=== PATIENT | male | born 1970 | race Caucasian/White ===

== ENCOUNTER 2024-12-16 12:56 | Emergency (ER) | payer BC, SELFPAY ==
--- NOTE | ~2024-12-16 | XR_ITS ---
EXAMINATION: XR HUMERUS, RIGHT CLINICAL INFORMATION: pain s/p fall COMPARISON: None available. TECHNIQUE: AP and lateral views of the right humerus. FINDINGS: Nondisplaced comminuted fracture right humeral head. No additional fractures seen. No malalignment. Small jacob spur distal humeral diaphysis. No soft tissue abnormalities. XR/XR humerus RT IMPRESSION: Comminuted nondisplaced humeral head fracture. Fracture lines traverse the greater tuberosity and surgical neck. Electronically signed by: Lon Ballard MD 12/16/2024 02:18 PM [facility]
--- NOTE | ~2024-12-16 | XR_ITS ---
EXAMINATION: XR SHOULDER, RIGHT CLINICAL INFORMATION: pain s/p fall COMPARISON: None available. TECHNIQUE: AP external rotation, Grashey, scapular Y, and axillary views of the right shoulder. FINDINGS: Mildly comminuted nondisplaced fracture of the humeral head. Fracture lines traverse the surgical neck and greater tuberosity. The glenohumeral joint is normally aligned. The AC joint is intact. The subacromial space is preserved. Remainder of the soft tissue and bony structures appear normal. XR/XR shoulder RT min 2V IMPRESSION: Nondisplaced comminuted fracture of the proximal right humerus. Fracture line seen traversing the surgical neck and the greater tuberosity. Electronically signed by: Lon Ballard MD 12/16/2024 02:15 PM [facility]
--- NOTE | 2024-12-16 13:28 | ED_ITS ---
HPI - Extremity Injury (Upper) General Chief Complaint: Extremity Injury, Upper Stated Complaint: R Shoulder Injury Time Seen by Provider: 12/16/24 14:25 History of Present Illness ED Provider: Dr. Malin HPI narrative: 54 y/o M patient; PMH HTN; presents from Urgent Care referral with report of right upper extremity pain after a fall yesterday morning. The patient states he did not hit his head or lose consciousness. He denies: headache, nausea/vomiting, chest pain, SOB. He has been ambulatory since the event. He has been taking tylenol at home with appropriate control of his pain. He is in a sling with swathe. Related Data Previous Rx's ?Medication ?Instructions ?Recorded acetaminophen 500 mg tablet 1,000 mg (2 x 500 mg) PO Q6H PRN 12/16/24 pain #30 tabs amlodipine 10 mg tablet 10 mg PO DAILY 30 days #30 tabs 12/16/24 ibuprofen 400 mg tablet 400 mg PO Q6H PRN pain #30 tabs 12/16/24 oxycodone 5 mg tablet 5 mg PO Q6H PRN pain 5 days #20 12/16/24 tabs oxycodone 5 mg tablet 5 mg PO Q6H PRN pain 5 days #20 12/16/24 tabs Allergies Allergy/AdvReac Type Severity Reaction Status Date / Time No Known Allergies Allergy Verified 12/16/24 13:34 Review of Systems Review of Systems: Yes all other systems are reviewed and are negative [facility] Past Medical History Attestation statement: The following information was validated with the patient. Source: unable to obtain Social History Social History Smoked in Last 30 Days: No Use of substances other than those prescribed or required for medical reasons: No Advance Directives: No Advance Directives Information Provided: Yes Do you have a plan to hurt others: No Plan Physical Exam Vital Signs: Vital Signs: Last Vital Signs Temp 99.8 F 12/16/24 13:30 Pulse 101 H 12/16/24 13:30 Resp 16 12/16/24 13:30 BP 223/127 H 12/16/24 13:30 Pulse Ox 97 12/16/24 13:30 O2 Del Method Room Air 12/16/24 13:30 BMI result Body Mass Index 33.7 Patient is afebrile, mildly tachycardic, and markedly hypertensive Const: General: cooperative HEENT: Head: Yes normal to inspection and Yes atraumatic Eyes: General: appearance normal, both eyes and all related structures Pupils: Equal, round and reactive pupils present EOM: EOMs intact bilaterally Neck: Neck: Yes normal visual inspection, Yes full ROM, Yes supple and No tender Chest: Chest palpation & inspection: normal inspection of the chest and normal palpation of entire chest wall Resp: Effort & Inspection: normal respiratory effort, able to speak in complete sentences, no cough and no respiratory distress Auscultation: clear to auscultation bilaterally Cardio: Rate: regular rate Rhythm: regular rhythm Peripheral pulses: Peripheral pulses 2+ throughout GI: Inspection: Yes normal to inspection, No Abdominal wall edema and No distended Palpation (GI): Soft to palpation, not firm, nontender, no guarding and not rigid Auscultation: normal bowel sounds Back/Spine/Pelvis: Back: No back tenderness Neuro: Cranial nerves: Yes Equal, round and reactive pupils present Extrem: Other: Right proximal humerus tenderness, no tenderness at right elbow/wrist/hand Course Course Course Narrative: This is an RME: Additional HPI, ROS, PE not included below will be deferred to primary provider. RME assessment and note performed by: Myra Mason PA-C This is a 54-year-old male, with a history of hypertension noncompliant on medications, who presents emergency department for evaluation of the left arm pain status post FOOSH. Patient was seen and evaluated by the [facility] urgent care and was diagnosed with a complete humeral head fracture and oblique fracture, no official report from the radiologist for the practitioner however given complex fracture, patient was advised to come to the emergency room. Fall was yesterday. Slip and fall on ice with outstretched hand. No head strike or LOC. Plan: X-ray, Tylenol, further ER evaluation needed. Reevaluation(s) Reevaluation #1: Patient is afebrile and hemodynamically stable. Reviewed XR results. XR notable for nondisplaced comminuted fx of the proximal right humerus with fx line seen traversing the surgical neck and the great tuberosity. Patient already in sling and swathe. Provided orthopedic follow up. Patient has a known history of high blood pressure non-compliant with medications. I reinforced that he should follow up with his PCP for serial blood pressure monitoring. I will re-start him on Amlodipine 10mg PO. Plan: Discharge to home with PCP and orthopedic follow up Return precautions given Medications Administered Discontinued Medications Generic Name Dose Route Start Last Admin Trade Name Freq PRN Reason Stop Dose Admin Acetaminophen 975 mg 12/16/24 13:33 12/16/24 14:09 Acetaminophen 325 Mg Tablet PO 12/16/24 13:34 975 mg ONCE ONE Administration Medical Decision Making Radiology Impression Discussion of test interpretation with radiology: I have reviewed the radiologist's reading. Radiologist Impression: XR SHOULDER, RIGHT CLINICAL INFORMATION: pain s/p fall COMPARISON: None available. TECHNIQUE: AP external rotation, Grashey, scapular Y, and axillary views of the right shoulder. FINDINGS: Mildly comminuted nondisplaced fracture of the humeral head. Fracture lines traverse the surgical neck and greater tuberosity. The glenohumeral joint is normally aligned. The AC joint is intact. The subacromial space is preserved. Remainder of the soft tissue and bony structures appear normal. XR/XR shoulder RT min 2V IMPRESSION: Nondisplaced comminuted fracture of the proximal right humerus. Fracture line seen traversing the surgical neck and the greater tuberosity. Electronically signed by: Lon Ballard MD 12/16/2024 02:15 PM [facility] Discharge Plan Discharge Clinical Impression: Fracture of humerus, Hypertension Patient Disposition: Home, Self-Care Instructions: Hypertension (ED), Arm Fracture in Adults (ED) Additional Instructions: You can take tylenol 1g (2 pills) every 6 hours as needed for pain and alternate with 400mg Ibuprofen (1 pill) every 6 hours as needed for pain. Call the orthopedic office today to make an appointment in 1 week for re- evaluation. Continue to wear the sling until seen by the orthopedic doctor. Start taking the high blood pressure medication once a day every day. Prescriptions: New oxycodone 5 mg tablet 5 mg PO Q6H PRN (Reason: pain) 5 Days Qty: 20 0RF Rx Instructions: Partial Fill upon patient request. oxycodone 5 mg tablet 5 mg PO Q6H PRN (Reason: pain) 5 Days Qty: 20 0RF Rx Instructions: Partial Fill upon patient request. amlodipine 10 mg tablet 10 mg PO DAILY 30 Days Qty: 30 0RF ibuprofen 400 mg tablet 400 mg PO Q6H PRN (Reason: pain) Qty: 30 0RF acetaminophen 500 mg tablet 1,000 mg PO Q6H PRN (Reason: pain) Qty: 30 0RF Referrals: Allegra Malin MD [Emergency Provider] - Savana Hendrix MD [Physician] - 1 week Print Language: Portuguese
[2024-12-16 13:30] VITALS: BP 223/127; PULSE 101; RESP 16; TEMP 37.7; O2SAT 97; BMI 33.7
[2024-12-16] MEDS: Acetaminophen 325 MG TABLET 975 MG PO (14:09)
[2024-12-16 15:17] VITALS: BP 212/121; PULSE 82; RESP 18; TEMP 36.9; O2SAT 95
[2024-12-16 15:19] VITALS: BP 212/121; PULSE 82; RESP 18; TEMP 36.9; O2SAT 95
== END 2024-12-16 15:20 | disposition home or self-care (01) ==
PROVIDERS: Emergency Provider Emergency Medicine
DX: S42.201A Unspecified fracture of upper end of right humerus, initial encounter for closed fracture (principal); W19.XXXA Unspecified fall, initial encounter; M25.511 Pain in right shoulder; Y93.9 Activity, unspecified; Y92.9 Unspecified place or not applicable; Y99.9 Unspecified external cause status
CPT/HCPCS: 73030; 73060; 99284

== ENCOUNTER → 2024-12-16 13:35 | Outpatient (BNV) | payer BC, SELFPAY | PROVIDERS: Emergency Provider Emergency Medicine; Visit Provider Radiology Diagnostic Radiology | DX: S42.201A Unspecified fracture of upper end of right humerus, initial encounter for closed fracture (principal) | CPT/HCPCS: 73030; 73060 ==

== ENCOUNTER 2025-01-01 12:15 | Outpatient (AMB) | payer BC, SELFPAY ==
--- NOTE | 2025-01-01 12:42 | MHC.OFFVIS ---
Vital Signs 01/01/25 12:53 Height 5 ft 6 in Weight 208 lb BMI 33.6 Intake Visit Reasons: FC-FC of , RT shoulder Hypertension-DOI 12/15/24 Intake Note: Koffi is a 54 year old mixed handedness male who presents today for an ER follow up of right shoulder s/p fall, DOI 12/15/24. Patient reports he was leaving his building at home and went to step off curb and slipped on ice. He fell forward on an outstretched arm. He was seen at a walk in clinic and was told to go to an ER. He presented to [facility] ER where he was placed in a sling and referred to orthopedics. Currently his pain fluctuates daily, stating shooting starts in elbow and radiates down his forearm. States most of his discomfort comes in the morning with waking up. Difficulty with getting himself dressed. Denies numbness or tingling. He has been out of work since his injury. Allergies No Known Allergies Allergy (Verified 12/16/24 13:34) Medication List - Last Reconciled 01/01/25 by Curtis Musa PA-C acetaminophen 1,000 mg (2 x 500 mg) PO Q6H PRN amlodipine 10 mg PO DAILY 30 days ibuprofen 400 mg PO Q6H PRN HPI HPI FC-FC of , RT shoulder Hypertension-DOI 12/15/24: Details: 54-year-old gentleman presents to the office today for an injury he sustained to his right shoulder on 12/15/2024. He states he was going to step off a curb when he slipped on ice landing on the shoulder. He was seen in the emergency department where x-rays were obtained showing a proximal humerus fracture. He was placed in a sling and referred to our office for ortho eval. 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 Trace Swelling and tenderness over the proximal humerus. Anterior deltoid sensation intact. Elbow and wrist ROM intact. NVI. Office Procedures AMB Fracture Care Fracture Billing Code: Fracture Billing Code Results Reviewed Results Reviewed: Xrays were obtained in the office today and personally reviewed by me of the right shoulder show 2 part proximal humerus fracture with stable alignment compared to previous films Assessment & Plan Assessment & Plan (1) Closed fracture of right proximal humerus: Code(s): S42.201A - Unspecified fracture of upper end of right humerus, initial encounter for closed fracture Category: Medical Plan: I educated the patient on the extent of his injury. I advised against any lifting pushing pulling or carrying with the right upper extremity for the next 6 weeks. He should come out of the sling several times a day to work on elbow range of motion. I did place an order for physical therapy to work on scapular stabilization and elbow range of motion. I would like to see him back in 6 weeks with x-rays sooner if needed. Orders: Orders XR shoulder RT min 2V Today Curtis Musa PA-C M25.511 - Pain in right shoulder XR shoulder RT min 2V Today Curtis Musa PA-C M25.511 - Pain in right shoulder Medications: Discontinued oxycodone Partial Fill upon patient request. Discontinued Reason: Patient no longer taking 5 mg PO Q6H PRN 20 tabs 0RF pain 5 days ROSSY Astorga oxycodone Partial Fill upon patient request. Discontinued Reason: Patient no longer taking 5 mg PO Q6H PRN 20 tabs 0RF pain 5 days ROSSY [facility] Coding Level of Care Code New Pt Level 3 (43268) Complex EM visit Add On G2211 Diagnoses Closed fracture of right proximal humerus S42.201A CPT Codes Fracture Care - Fracture Billing Code: Fracture Billing Code ([id number])
[2025-01-01 12:53] VITALS: BMI 33.6
== END 2025-01-01 13:39 | disposition home or self-care (01) ==
PROVIDERS: Visit Provider Physician Assistant
DX: S42.201A Unspecified fracture of upper end of right humerus, initial encounter for closed fracture (principal); W00.0XXA Fall on same level due to ice and snow, initial encounter
CPT/HCPCS: 99203

== ENCOUNTER 2025-01-01 12:15 | Outpatient (REF) | payer BC, SELFPAY ==
--- NOTE | ~2025-01-01 | XR_ITS ---
EXAMINATION: XR SHOULDER 2 OR MORE VIEWS RIGHT HISTORY: M25.511 - Pain in right shoulder COMPARISON: Comparison is made with the prior examination dated 12/16/2024. FINDINGS: Two views of the right shoulder are submitted. Osseous mineralization is normal. Again seen is a comminuted nondisplaced fracture of the humeral head and neck. Fracture lines remain visible. The glenohumeral and acromioclavicular joint spaces are preserved. The soft tissues are unremarkable. XR/XR shoulder RT min 2V IMPRESSION: Comminuted nondisplaced fracture of the humeral head and neck without significant change. Electronically signed by: Rajeev Canseco MD 01/05/2025 11:28 AM EDT
== END 2025-01-01 12:16 | disposition home or self-care (01) ==
LOC: HO.HOSX 12:15
PROVIDERS: Visit Provider Physician Assistant
DX: M25.511 Pain in right shoulder (principal)
CPT/HCPCS: 73030

== ENCOUNTER → 2025-01-01 12:57 | Outpatient (BNV) | payer BC, SELFPAY | PROVIDERS: Visit Provider Radiology Diagnostic Radiology | DX: S42.201A Unspecified fracture of upper end of right humerus, initial encounter for closed fracture (principal) | CPT/HCPCS: 73030 ==

== ENCOUNTER 2025-02-09 09:05 | Outpatient (REF) | payer BC, SELFPAY ==
--- NOTE | ~2025-02-09 | XR_ITS ---
EXAMINATION: XR SHOULDER 2 OR MORE VIEWS RIGHT HISTORY: M25.511 - Pain in right shoulder COMPARISON: Comparison is made with the prior examination dated 01/01/2025. FINDINGS: Two views of the right shoulder are submitted. Osseous mineralization is normal. Again seen is a comminuted fracture of the humeral head and neck. The fracture lines are less well visualized on the current study, and there is a small amount of callus formation noted, consistent with healing. The glenohumeral joint is not well evaluated. There is mild narrowing of the AC joint. The soft tissues are unremarkable. XR/XR shoulder RT min 2V IMPRESSION: Healing comminuted fracture of the humeral head and neck. Electronically signed by: Rajeev Canseco MD 02/10/2025 07:57 AM EDT
== END 2025-02-09 09:06 | disposition home or self-care (01) ==
LOC: HO.HOSX 09:05
PROVIDERS: Visit Provider Physician Assistant
DX: M25.551 Pain in right hip (principal); S42.211D Unspecified displaced fracture of surgical neck of right humerus, subsequent encounter for fracture with routine healing
CPT/HCPCS: 73030

== ENCOUNTER 2025-02-09 13:00 | Outpatient (AMB) | payer BC, SELFPAY ==
--- NOTE | 2025-02-09 13:11 | MHC.OFFVIS ---
Vital Signs 02/09/25 13:18 Height 5 ft 6 in Weight 208 lb BMI 33.6 Intake Visit Reasons: OV - right proximal humerus fx-DOI 12/15/24 Intake Note: Koffi is a 54 year old mixed handedness male who presents today for an ER follow up of right shoulder s/p fall, DOI 12/15/24. X-rays updated. Patient reports that he is doing well and continues to work with PT. He has soreness after attending PT. States his pain fluctuates daily, stating some days he has throbbing pain. Allergies No Known Allergies Allergy (Verified 02/09/25 13:12) Medication List - Last Reconciled 02/09/25 by Curtis Musa PA-C acetaminophen 1,000 mg (2 x 500 mg) PO Q6H PRN amlodipine 10 mg PO DAILY 30 days ibuprofen 400 mg PO Q6H PRN HPI HPI OV - right proximal humerus fx-DOI 12/15/24: Details: 54-year-old gentleman returns to the office today 2 months status post right proximal humerus fracture on 12/15/2024. Patient comes in today continuing to wear the sling. He has been working with physical therapy for range of motion and periscapular stabilization. He continues to remain out of work. 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 Review of Systems Const All systems reviewed & are unremarkable except as noted in HPI and below Physical Exam Vital Signs: BMI result Body Mass Index 33.6 Const General: cooperative and no acute distress Orientation/consciousness: patient oriented x3 Resp Effort & Inspection: normal respiratory effort and able to speak in complete sentences Cardio Peripheral pulses: Peripheral pulses 2+ throughout Neuro General: patient oriented x3 Extrem Other: FF 90 ER 90 He is able to bring hand to top of head Results Reviewed Results Reviewed: Xrays were obtained in the office today and personally reviewed by me of the right shoulder show 2 part proximal humerus fracture with stable alignment compared to previous films with interval healing Assessment & Plan Assessment & Plan (1) Closed fracture of right proximal humerus: Code(s): S42.201A - Unspecified fracture of upper end of right humerus, initial encounter for closed fracture Category: Medical Plan: He should discontinue the use of the sling. He will continue to work with therapy for range of motion and scapular stabilization. He will continue to avoid lifting more than 10 lb. He will see me back in 6-8 weeks with x-rays and remain out of work until then. Orders: Orders XR shoulder RT min 2V Today M25.511 - Pain in right shoulder Coding Level of Care Code Global (51757) Diagnoses Closed fracture of right proximal humerus S42.201A
[2025-02-09 13:18] VITALS: BMI 33.6
== END 2025-02-09 13:31 | disposition home or self-care (01) ==
LOC: HO.HOS 13:00
PROVIDERS: Visit Provider Physician Assistant
DX: S42.201A Unspecified fracture of upper end of right humerus, initial encounter for closed fracture (principal)
CPT/HCPCS: 99213

== ENCOUNTER → 2025-02-09 13:06 | Outpatient (BNV) | payer BC, SELFPAY | PROVIDERS: Visit Provider Radiology Diagnostic Radiology | DX: S42.291A Other displaced fracture of upper end of right humerus, initial encounter for closed fracture (principal) | CPT/HCPCS: 73030 ==

== ENCOUNTER 2025-03-31 09:00 | Outpatient (RCR) | payer BC, SELFPAY ==
--- NOTE | 2025-01-26 09:53 | MHC.PT.EP ---
[facility] [place] Office [place] Office [place] Office [address] Duarte Keys [address] [phone] F: [phone] F: [phone] F: [phone] F: [phone] Physical Therapy Plan of Care Date of Evaluation: 01/26/25 Date of Surgery: Diagnosis: This is a 54 yo male presenting to skilled PT with a script for closed fracture of R proximal humerus. Assessment: This is a 54 yo male presenting to skilled PT with a script for closed fracture of R proximal humerus. atient presented to the [facility] emergency department for evaluation of left arm pain status post FOOSH after slipping on the ice on 12/15/24. Patient was seen and evaluated by the [facility] urgent care and was diagnosed with a complete humeral head fracture and oblique fracture, no official report from the radiologist for the practitioner however given complex fracture, patient was advised to go to the emergency room. No head strike or LOC. Patient is now being followed by [facility] ortho with the last note stating: I educated the patient on the extent of his injury. I advised against any lifting pushing pulling or carrying with the right upper extremity for the next 6 weeks. He should come out of the sling several times a day to work on elbow range of motion. I did place an order for physical therapy to work on scapular stabilization and elbow range of motion. I would like to see him back in 6 weeks with x-rays sooner if needed. Per script PT to work on periscap strengthening and elbow ROM, no RTC strengthening. He states that he was told to keep his sling on except for 2-3 hrs a day. Follows up with ortho again on 02/09. Patient reporting pain located at the pec muscles, described as sharp, at rest and with movement. Assessment reveals pain that ranges from up to a 6/10 at the worst. Patient demos decreased R shoulder and cervical ROM, strength of B shoulder's and scaps with the R obviously worse than the L, TTP at the anterior GHJ joint line and impaired posture with forward head and rounded shoulders. Based on functional limitations, impaired QOL and pain tolerance patient is a good candidate for skilled PT 2x/wk for 6wks. Frequency and Duration: The patient will be seen 2x/wk for 6wks Short Term Goals: (In 2 weeks) Demo I with HEP Improve shoulder PROM by at least 20 degs flexion, 10 degs ER, IR Demo proper scapular recruitment with appropriate shoulder strengthening exercises Understand sling use, healing times and anatomy; be compliant with fracture care Deep Tissue Massage Therapist Goals: (in 6 wks) Improve shoulder nonpainful AROM to at least 50% opp UE Demo at least 1 grade improvement in MMT for shoulder Improve SPADI by at least 10 points Improve overall functional QOL by at least 50% Treatment Plan: Modalities to reduce pain, spasms and effusion. Manual therapy to restore motion and function. Therapeutic exercise to improve strength and flexibility. Neuromuscular re-education for posture and balance. Therapeutic activities to return to functional activities of daily living. Electronically signed by: Shameka Zuleta PT Please sign and return to therapist. Thank you for your referral.
--- NOTE | 2025-04-29 12:34 | MHC.PT.DC ---
[facility] [place] Office [place] Office [place] Office [address] Duarte Keys [address] [phone] F: [phone] F: [phone] F: [phone] F: [phone] Physical Therapy Discharge Report Diagnosis: This is a 54 yo male presenting to skilled PT with a script for closed fracture of R proximal humerus. Date of Surgery: Date of Evaluation: 01/26/25 Date of Discharge: 04/29/25 Treatments to Date: 14 Cancellations to Date: 0 No Shows to Date: 0 Discharge Status: Achieved Goals Improved Function Independent with HEP Discharge Summary: 03/31: Patient has come to 14 sessions of PT. He demos good ROM, improved pain and improving strength. At this time he is I in his HEP and appropriate for DC. Additionally, he has a 20 visit hard max through his insurance and I do not want to exhaust his benefits as he is I in his program and does not require skilled PT at this time. He has met his PT goals and sees ortho tomorrow. Educated to continue HEP. DC to self care. Chart closed after 30 days Electronically signed by: Shameka Zuleta, PT Please sign and return to therapist. Thank you for your referral.
== END 2025-04-29 12:34 | disposition home or self-care (01) ==
LOC: HO.PTCHIC 09:00
PROVIDERS: Visit Provider Physician Assistant
DX: S42.201D Unspecified fracture of upper end of right humerus, subsequent encounter for fracture with routine healing (principal)
CPT/HCPCS: 97110; 97162

== ENCOUNTER 2025-04-01 08:42 | Outpatient (REF) | payer BC, SELFPAY ==
--- NOTE | ~2025-04-01 | XR_ITS ---
EXAMINATION: XR SHOULDER, RIGHT CLINICAL INFORMATION: M25.511 - Pain in right shoulder COMPARISON: None available. TECHNIQUE: AP external rotation, Grashey, scapular Y, and axillary views of the right shoulder. FINDINGS: Previously seen right humeral neck fracture line has almost healed and not visualized at this time. The glenohumeral and AC joint space is normal. The soft tissues are normal.. XR/XR shoulder RT min 2V IMPRESSION: Almost healed right humeral neck fracture. No new fractures or dislocation seen. Electronically signed by: Bear Foley MD 04/02/2025 08:24 AM EDT
== END 2025-04-01 08:43 | disposition home or self-care (01) ==
LOC: HO.HOSX 08:42
PROVIDERS: Visit Provider Physician Assistant
DX: M25.511 Pain in right shoulder (principal)
CPT/HCPCS: 73030

== ENCOUNTER 2025-04-01 15:07 | Outpatient (AMB) | payer BC, SELFPAY ==
[2025-04-01 15:15] VITALS: BMI 33.6
--- NOTE | 2025-04-01 15:15 | MHC.OFFVIS ---
Vital Signs 04/01/25 15:15 Height 5 ft 6 in Weight 208 lb BMI 33.6 Intake Visit Reasons: OV-RT proximal humerus fx-DOI 12/15/24 Intake Note: Koffi is a 54 year old mixed handedness male who presents today for a follow up of right proximal humerus fracture, DOI 12/15/24. At his last visit he was recommended to discontinue use of sling and continues working with physical therapy. He will remain out of work and follow up in office in 6-8 weeks with repeat x-rays. Today patient reports he completed PT yesterday. He has ongoing soreness in his shoulder. Allergies No Known Allergies Allergy (Verified 04/01/25 15:16) Medication List - Last Reconciled 04/01/25 by Curtis Musa PA-C acetaminophen 1,000 mg (2 x 500 mg) PO Q6H PRN ibuprofen 400 mg PO Q6H PRN HPI HPI OV-RT proximal humerus fx-DOI 12/15/24: Details: 54-year-old gentleman returns to the office today for follow-up right proximal humerus fracture on 12/15/2024. He has been working with physical therapy and completed his last session yesterday. He states he has progress well however he continues to have mild discomfort with overhead reaching. 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 Neurovascularly intact. Rotator cuff strength intact. Results Reviewed Results Reviewed: Xrays were obtained in the office today and personally reviewed by me of the right shoulder show 2 part proximal humerus fracture with stable alignment compared to previous films with interval healing Assessment & Plan Assessment & Plan (1) Closed fracture of right proximal humerus: Code(s): S42.201A - Unspecified fracture of upper end of right humerus, initial encounter for closed fracture Category: Medical Plan: He will continue with his home exercise program to regain full range of motion and strength. Increase activities as tolerated. He will return to work on 04/06/2025 with no lifting pushing pulling or carrying greater than 15 lb for 3 weeks then he can resume no restrictions. Any questions or concerns she will contact our office otherwise follow up as needed. Orders: Orders XR shoulder RT min 2V Today M25.511 - Pain in right shoulder Coding Level of Care Code Est Pt Level 3 (58235) Complex EM visit Add On G2211 Diagnoses Closed fracture of right proximal humerus S42.201A
== END 2025-04-01 15:39 | disposition home or self-care (01) ==
LOC: HO.HOS 15:08
PROVIDERS: Visit Provider Physician Assistant
DX: S42.201A Unspecified fracture of upper end of right humerus, initial encounter for closed fracture (principal)
CPT/HCPCS: 99213

== ENCOUNTER → 2025-04-01 15:09 | Outpatient (BNV) | payer BC, SELFPAY | PROVIDERS: Visit Provider Radiology Diagnostic Radiology | DX: M25.511 Pain in right shoulder (principal) | CPT/HCPCS: 73030 ==